=== PATIENT | female | born 1995 | race Caucasian/White ===

== ENCOUNTER 2017-02-19 16:28 | Emergency (ER) | payer OTHER ==
[~2017-02-19] VITALS: Ht 170.2 cm; Wt 82.6 kg
[2017-02-19 16:47] VITALS: BP 150/90
[2017-02-19] MEDS ORDERED: IBUPROFEN 200 MG TABLET PO ONE (17:30)
[2017-02-19] MEDS ORDERED: IBUPROFEN 200 MG TABLET ONE (17:36)
== END 2017-02-19 17:54 | disposition home or self-care (01) ==
LOC: ED 17:48
DX: S83.91XA Sprain of unspecified site of right knee, initial encounter (principal); Z90.89 Acquired absence of other organs; X58.XXXA Exposure to other specified factors, initial encounter; Y93.89 Activity, other specified; Y99.8 Other external cause status; Y92.89 Other specified places as the place of occurrence of the external cause
CPT/HCPCS: 29505

== ENCOUNTER 2018-12-17 04:18 | Emergency (ER) | payer OTHER ==
[~2018-12-17] VITALS: Ht 170.2 cm; Wt 100.1 kg
--- NOTE | 2018-12-17 04:47 | NUR ---
Pt reports vomiting blood x3 days, approx 8 episodes of vomting. Denies abd pain, reports cough x2 weeks.
[2018-12-17] MEDS ORDERED: MAALOX/HYOSCYAMINE/LIDOCAINE 45 ML BTL PO ONE (05:00)
[2018-12-17] MEDS ORDERED: FAMOTIDINE 20 MG/2 ML IVP ONE (05:00)
[2018-12-17] MEDS ORDERED: ONDANSETRON 2MG/ML, 2ML IVPush ONE (05:00)
[2018-12-17] MEDS ORDERED: SODIUM CHLORIDE FLUSH 10ML SYR IVF ONE (05:00)
[2018-12-17] MEDS ORDERED: MAALOX/HYOSCYAMINE/LIDOCAINE 45 ML BTL ONE (05:04)
[2018-12-17] MEDS ORDERED: FAMOTIDINE 20 MG/2 ML ONE (05:04)
[2018-12-17] MEDS ORDERED: ONDANSETRON 2MG/ML, 2ML ONE (05:04)
--- NOTE | 2018-12-17 05:17 | NUR ---
Pt admits to drinking ETOH 3 days ago, states she was at a green party and drank heavily, has since developed blood in her vomit.
[2018-12-17 05:24] LABS: BASOPHILS # (AUTO) 0.06 x10^3/uL (0-0.1); BASOPHILS % (AUTO) 1 % (0-1); EOSINOPHILS # (AUTO) 0.21 x10^3/uL (0-0.4); EOSINOPHILS % (AUTO) 2 % (1-7); LYMPHOCYTES # (AUTO) 2.51 x10^3/uL (1-3.4); LYMPHOCYTES % (AUTO) 26 % (22-44); MD NO; MEAN CORPUSCULAR HGB CONC 34.4 g/dL (32.4-35.8); MEAN CORPUSCULAR VOLUME 90.1 fL (80-100); MEAN PLATELET VOLUME 9.7 fL (7.4-10.4); MONOCYTES # (AUTO) 0.74 x10^3/uL (0.2-0.8); MONOCYTES % (AUTO) 8 % (2-9); NEUTROPHILS # (AUTO) 6.13 x10^3/uL (1.8-6.8); NEUTROPHILS % (AUTO) 64 % (42-75); PLATELET COUNT 194 x10^3/uL (130-400); RED BLOOD COUNT 4.69 x10^6/uL (3.82-5.3); RED CELL DISTRIBUTION WIDTH 12.5 % (9.6-15.2)
[2018-12-17 05:32] VITALS: BP 123/84
[2018-12-17 05:35] LABS: ALANINE AMINOTRANSFERASE 29 U/L (12-78); ALBUMIN 3.8 g/dL (3.4-5.0); ANION GAP 7 mmol/L (5-15); CALCIUM 8.2 mg/dL (8.5-10.1); CHLORIDE 108 mmol/L (98-107); CREATININE 0.76 mg/dL (0.55-1.02)
[2018-12-17 05:40] LABS: ALKALINE PHOSPHATASE 124 U/L (45-117); BILIRUBIN,TOTAL 0.3 mg/dL (0.2-1.0); TOTAL PROTEIN 7.3 g/dL (6.4-8.2)
--- NOTE | 2018-12-17 05:52 | NUR ---
Pt sleeping upon RN reassesment, arsouable to verbal stimuli, reports decreased nausea, denies any complaints upon reassesement
--- NOTE | 2018-12-17 07:03 | NUR ---
Patient/Caregiver given discharge instructions and they have confirmed that they understand the instructions. Patient ambulatory with steady gait.
== END 2018-12-17 07:04 | disposition home or self-care (01) ==
LOC: ED 06:58
DX: K29.20 Alcoholic gastritis without bleeding (principal)
CPT/HCPCS: 36415; 80053; 83690; 84703; 85025; 96374; 96375; 99283; J2405; J3490

== ENCOUNTER 2019-04-25 16:48 | Emergency (ER) | payer OTHER ==
[~2019-04-25] VITALS: Ht 170.2 cm; Wt 97.2 kg
[2019-04-25 16:55] VITALS: BP 144/85
--- NOTE | 2019-04-25 17:05 | NUR ---
Pt assessed. Atraumatic R knee pain x 2 weeks. Reports her knee "will lock up and becomes hard to bend." Pt ambulatory. Pt states pain above knee and posterior knee. NAD at this time, will cont to monitor. Call light within reach.
--- NOTE | 2019-04-25 17:29 | NUR ---
Pt at XRAY
== END 2019-04-25 17:56 | disposition home or self-care (01) ==
LOC: ED 17:25
DX: M25.361 Other instability, right knee (principal); F17.200 Nicotine dependence, unspecified, uncomplicated; Z90.89 Acquired absence of other organs
CPT/HCPCS: 99283

== ENCOUNTER 2019-08-17 20:03 | Emergency (ER) | payer OTHER ==
[~2019-08-17] VITALS: Ht 170.2 cm; Wt 100.3 kg
[~2019-08-17 20:03] MED LIST: FLUO20CA19 PO; OXCA150T18 PO
[2019-08-17 20:08] VITALS: BP 137/96
== END 2019-08-17 23:58 | disposition home or self-care (01) ==
LOC: ED 23:00
DX: S83.014A Lateral dislocation of right patella, initial encounter (principal); G89.11 Acute pain due to trauma; M25.561 Pain in right knee; X58.XXXA Exposure to other specified factors, initial encounter; Y93.01 Activity, walking, marching and hiking; Y92.89 Other specified places as the place of occurrence of the external cause; Y99.8 Other external cause status
CPT/HCPCS: 29505; 99283